=== PATIENT | male | born 1955 | race Caucasian/White ===

== ENCOUNTER 2022-04-11 22:40 | Emergency (ER) | payer OTHER, SELFPAY ==
[2022-04-11 22:40] VITALS: BP 169/108; PULSE 100; RESP 18; O2SAT 91; BMI 26.0
--- NOTE | 2022-04-11 22:43 | XRR_ITS ---
PROCEDURE INFORMATION: Exam: XR Chest Exam date and time: 04/11/2022 11:07 PM Age: 66 years old Clinical indication: Other: No chest complaints; Additional info: SOB TECHNIQUE: Imaging protocol: Radiologic exam of the chest. Views: 1 view. COMPARISON: CT angio headneck* [id number] 04/11/2022 10:57 PM FINDINGS: Lungs: Unremarkable. No consolidation. Pleural spaces: Unremarkable. No pleural effusion. No pneumothorax. Heart/Mediastinum: Unremarkable. No cardiomegaly. Bones/joints: Unremarkable. Other findings: There is soft tissue mass effect seen in the superior mediastinum the right likely corresponding to the large right thyroid mass seen on CTA of the head and neck. Minimal linear opacities are seen in the left mid lower hemithorax likely representing atelectasis. XR/XR chest 1V portable [id number] IMPRESSION: 1. Right superior mediastinal soft tissue attenuation mass likely corresponds to the prominent thyroid mass seen on today's CTA of the head and neck. 2. Linear opacities in the left mid and lower hemithorax likely represents atelectasis.
--- NOTE | 2022-04-11 22:43 | CTR_ITS ---
PROCEDURE INFORMATION: Exam: CT Head Without Contrast Exam date and time: 04/11/2022 10:53 PM Age: 66 years old Clinical indication: Pain; Headache not specified; Patient HX: C/O sudden onset R sided DIAZ TECHNIQUE: Imaging protocol: Computed tomography of the head without contrast. Radiation optimization: All CT scans at this facility use at least one of these dose optimization techniques: automated exposure control; mA and/or kV adjustment per patient size (includes targeted exams where dose is matched to clinical indication); or iterative reconstruction. COMPARISON: No relevant prior studies available. RADIATION DOSE METRICS: Total DLP (mGy-cm): 1071.28 FINDINGS: Brain: There is mild diffuse cerebral atrophy. Patchy areas of hypoattenuation are seen in the deep white the cerebral hemispheres bilaterally compatible with mild deep white matter microvascular disease. Cerebral ventricles: No ventriculomegaly. Paranasal sinuses: Visualized sinuses are unremarkable. No fluid levels. Mastoid air cells: Visualized mastoid air cells are well aerated. Bones/joints: Unremarkable. No acute fracture. Soft tissues: Unremarkable. CT/CT head wo con* [id number] IMPRESSION: There are no acute intracranial findings.
--- NOTE | 2022-04-11 22:43 | CTR_ITS ---
PROCEDURE INFORMATION: Exam: CTA Head With Contrast, Arteries Exam date and time: 04/11/2022 10:57 PM Age: 66 years old Clinical indication: Pain; Headache; Patient HX: C/O sudden onset R sided DIAZ TECHNIQUE: Imaging protocol: Computed tomographic angiography of the head with contrast. 3D rendering (Not supervised by radiologist): MIP and/or 3D reconstructed images were created by the technologist. Radiation optimization: All CT scans at this facility use at least one of these dose optimization techniques: automated exposure control; mA and/or kV adjustment per patient size (includes targeted exams where dose is matched to clinical indication); or iterative reconstruction. Contrast material: OMNI 350; Contrast volume: 95 ml; Contrast route: INTRAVENOUS (IV); COMPARISON: CT head wo con* [id number] 04/11/2022 10:53 PM RADIATION DOSE METRICS: Total DLP (mGy-cm): 472.47 FINDINGS: ANTERIOR CIRCULATION: Right internal carotid artery: Unremarkable. Intracranial segment is patent with no significant stenosis. No aneurysm. Right middle cerebral artery: Unremarkable. No occlusion or significant stenosis. No aneurysm. Right anterior cerebral artery: Unremarkable. No occlusion or significant stenosis. No aneurysm. Left internal carotid artery: Unremarkable. Intracranial segment is patent with no significant stenosis. No aneurysm. Left middle cerebral artery: Unremarkable. No occlusion or significant stenosis. No aneurysm. Left anterior cerebral artery: Unremarkable. No occlusion or significant stenosis. No aneurysm. POSTERIOR CIRCULATION: Right vertebral artery: Unremarkable. No occlusion or significant stenosis. No aneurysm. Left vertebral artery: Unremarkable. No occlusion or significant stenosis. No aneurysm. Basilar artery: Unremarkable. No occlusion or significant stenosis. No aneurysm. Right posterior cerebral artery: Unremarkable. No occlusion or significant stenosis. No aneurysm. Left posterior cerebral artery: Unremarkable. No occlusion or significant stenosis. No aneurysm. Brain: No definite mass, mass effect, or midline shift. Cerebral ventricles: No ventriculomegaly. Bones/joints: Unremarkable. No acute fracture. Soft tissues: Unremarkable. PROCEDURE INFORMATION: Exam: CTA Neck With Contrast Exam date and time: 04/11/2022 10:57 PM Age: 66 years old Clinical indication: Pain; Headache; Patient HX: C/O sudden onset R sided DIAZ TECHNIQUE: Imaging protocol: Computed tomographic angiography of the neck with contrast. 3D rendering (Not supervised by radiologist): MIP and/or 3D reconstructed images were created by the technologist. Radiation optimization: All CT scans at this facility use at least one of these dose optimization techniques: automated exposure control; mA and/or kV adjustment per patient size (includes targeted exams where dose is matched to clinical indication); or iterative reconstruction. Contrast material: OMNI 350; Contrast volume: 95 ml; Contrast route: INTRAVENOUS (IV); COMPARISON: CT head wo con* [id number] 04/11/2022 10:53 PM RADIATION DOSE METRICS: Total DLP (mGy-cm): 472.47 FINDINGS: Right common carotid artery: No stenosis. No dissection or occlusion. Right internal carotid artery: No stenosis of the extracranial segment. No dissection or occlusion. Right external carotid artery: No occlusion or stenosis of the origin. Left common carotid artery: No stenosis. No dissection or occlusion. Left internal carotid artery: No stenosis of the extracranial segment. No dissection or occlusion. Left external carotid artery: No occlusion or stenosis of the origin. Right vertebral artery: Diminutive caliber. No stenosis. No dissection or occlusion. Left vertebral artery: Dominant left vertebral artery No stenosis. No dissection or occlusion. Thyroid: There is a large heterogeneous mass present within the right thyroid lobe, its inferior margin included in the current examination measuring 4.9 cm transverse dimension by 6 cm AP dimension. It measures at least 6.6 cm craniocaudal dimension. A somewhat lobulated inhomogeneous left lobe is seen as well. Soft tissues: Normal. No significant soft tissue swelling. Bones/joints: No acute fracture. CT/CT angio headneck* [id number] IMPRESSION: No large vessel stenosis or occlusion. IMPRESSION: 1. There is no evidence for significant stenoses, dissection occlusion visualized arteries of the neck. 2. Heterogeneous thyroid parenchyma with prominent heterogeneous right mass. Follow-up non-emergent thyroid ultrasound is recommended. COMMENTS: Consistent with the [place] [employer]'s Incidental Findings Committee white paper (J Am Herminio Radiol 2015): In patients aged 35 years and older with an incidental thyroid nodule equal to or greater than 1.[address], MRI or extrathyroidal US, further evaluation with dedicated thyroid US is recommended for patients with normal life expectancy and without comorbidities. For smaller nodules without suspicious features, no further evaluation or follow up is recommended. REFERENCES: NASCET CRITERIA. The degree of internal carotid artery stenosis is based on NASCET criteria. Normal is no stenosis. Mild is less than 50% stenosis. Moderate is 50-69% stenosis. Severe is 70% to 99% stenosis. Total occlusion is no detectable patent lumen.
--- NOTE | 2022-04-11 22:44 | ECG_ITS ---
[facility] Test Date: 2022-04-11 Pat Name: Eduard Lacey Department: Room: Gender: Male Hogs[employer] Cooper: : 1955 Requested By: Charlette Lay Order Number: [id number] Татьяна MD: Vikram Ramirez M.D. Measurements Intervals Springer Rate: 100 P: 46 TN: 160 QRS: -54 QRSD: 130 T: 78 QT: 364 QTc: 471 Interpretive Statements SINUS TACHYCARDIA POSSIBLE LEFT ATRIAL ENLARGEMENT [-0.1mV P-WAVE IN V1/V2] LEFT ANTERIOR FASCICULAR BLOCK [QRS AXIS <= -45, QR IN I, RS IN II] LEFT VENTRICULAR HYPERTROPHY AND ST-T CHANGE [VOLTAGE CRITERIA PLUS ST/T ABNORMALITY] No previous ECG available for comparison Electronically Signed On 04-12-2022 20:45:26 CDT by Vikram Ramirez M.D. [id number] f
[2022-04-11 22:48] VITALS: TEMP 37
--- NOTE | 2022-04-11 22:50 | ED_ITS ---
HPI - Chest Pain General: Chief Complaint: Chest Pain Stated Complaint: CP Time Seen by Provider: 04/11/22 22:43 Source: patient and EMS Mode of arrival: EMS Limitations: no limitations History of Present Illness: 66-year-old male states that roughly 10 PM he started to have a headache. He states it was in the right side of his head while with his right neck. He states pain is currently an 8 out of 10. Denies any fever denies any worsening improving factors. He denies any vomiting or diarrhea. He states that he does have a lesion to his right scalp causing pain at times. Associated symptoms: Deny abdominal pain, dyspnea, fever(s), nausea or vomiting Review of Systems Const: Denies: fever(s), chills, body aches or change in appetite Eyes: Denies: blurry vision or eye discomfort ENMT: Denies: throat pain or dental pain Card: Denies: chest pain Resp: Denies: dyspnea GI: Denies: abdominal pain, nausea, vomiting or diarrhea : Denies: dysuria Musc: Reports: neck pain Skin/Breast: Denies: rash Neuro: Reports: headache(s) Psych: Denies: depression Gopi/Lymph: Denies: easy bruising All/Imm: Denies: urticaria PFSH ED PFSH: Surgical History (Updated 04/11/22 @ 22:54 by Charlette Lay MD) No pertinent past surgical history Social History (Updated 04/11/22 @ 22:52 by Charlette Lay MD) Substance/Drug Use: never Physical Exam Const: COMMON NORMALS: no acute distress, patient oriented x3 and healthy appearing HENMT: COMMON NORMALS: normocephalic and atraumatic HEAD & SCALP: normocephalic and atraumatic Eye: COMMON NORMALS: Equal, round and reactive pupils present and EOMs intact bilaterally PUPIL: Yes Equal, round and reactive pupils present Neck/C-Spine: COMMON NORMALS: full ROM and supple Chest: COMMONS NORMALS: normal inspection of the chest and normal palpation of entire chest wall Resp: COMMON NORMALS: normal respiratory effort, No retractions, No use of accessory muscles and clear to auscultation bilaterally AUSCULTATION: clear to auscultation bilaterally Cardio: COMMON NORMALS: regular rate, regular rhythm and No murmurs present (Cardio) RATE: regular rate RHYTHM: regular rhythm GI: COMMON NORMALS: Normal to inspection, nondistended, normoactive bowel sounds present, Soft to palpation, non-tender and no masses PALPATION: Yes Soft to palpation Extremity: COMMON NORMALS: normal to inspection and full ROM Neuro: COMMON NORMALS: patient oriented x3, moves all extremities and no focal motor deficits Psych: COMMON NORMALS: mental status grossly normal, Normal thought process present and cooperative THOUGHT PROCESS: Normal thought process present Skin: COMMON NORMALS: no rashes or lesions noted and no wounds GENERAL SKIN EXAM: no rashes or lesions noted Course Vital Signs: Vital signs: Vital Signs Temperature 98.6 F 04/11/22 22:48 Pulse Rate 77 04/12/22 01:32 Respiratory Rate 16 04/12/22 01:32 Blood Pressure 122/85 04/12/22 01:32 Pulse Oximetry 92 04/12/22 01:32 MDM - Chest Pain Medical Decision Making Patient presents with a headache that is since resolved his head CT and CT angio here are normal no signs of aneurysm. He does have a thyroid mass we will get him follow-up with oncology he is otherwise well-appearing here he is stable for discharge she is return if worsening. Lab Data : 04/11/22 22:30 04/11/22 22:30 Radiology Impressions Chest X-Ray 04/11/22 22:43 IMPRESSION: 1. Right superior mediastinal soft tissue attenuation mass likely corresponds to the prominent thyroid mass seen on today's CTA of the head and neck. 2. Linear opacities in the left mid and lower hemithorax likely represents atelectasis. Head CT 04/11/22 22:43 IMPRESSION: There are no acute intracranial findings. Head/Neck CTA 04/11/22 22:43 IMPRESSION: No large vessel stenosis or occlusion. IMPRESSION: 1. There is no evidence for significant stenoses, dissection occlusion visualized arteries of the neck. 2. Heterogeneous thyroid parenchyma with prominent heterogeneous right mass. Follow-up non-emergent thyroid ultrasound is recommended. COMMENTS: Consistent with the [place] [employer]'s Incidental Findings Committee white paper (J Am Herminio Radiol 2015): In patients aged 35 years and older with an incidental thyroid nodule equal to or greater than 1.[address], MRI or extrathyroidal US, further evaluation with dedicated thyroid US is recommended for patients with normal life expectancy and without comorbidities. For smaller nodules without suspicious features, no further evaluation or follow up is recommended. REFERENCES: NASCET CRITERIA. The degree of internal carotid artery stenosis is based on NASCET criteria. Normal is no stenosis. Mild is less than 50% stenosis. Moderate is 50-69% stenosis. Severe is 70% to 99% stenosis. Total occlusion is no detectable patent lumen. Laboratory Results WBC 9.5 10^3/uL (4.0-10.0) 04/11/22 22:30 RBC 4.90 10^6/uL (4.1-5.3) 04/11/22: Hgb 15.8 g/dL (11.7-16.6) 04/11/22: Hct 45.1 % (42.0-52.0) 04/11/22: MCV 92.0 fl (80-94) 04/11/22: MCH 32.2 pg (28.0-34.0) 04/11/22: MCHC 35.0 g/dL (30.0-36.0) 04/11/22: RDW 11.4 % (12.1-15.1) L 04/11/22: Plt Count 191 10^3/cmm (130-400) 04/11/22 22: MPV 11.0 fL (7.4-10.4) H 04/11/22 22: Neut % (Auto) 69.3 % 04/11/22: Lymph % (Auto) 21.2 % 04/11/22 22:30 [place] % (Auto) 8.3 % 04/11/22: Eos % (Auto) 0.7 % 04/11/22: Baso % (Auto) 0.2 % 04/11/22:30 Neut # (Auto) 6.60 10^3/uL (1.8-7.7) 04/11/22: Lymph # (Auto) 2.0 10^3/uL (0.8-4.8) 04/11/22: [place] # (Auto) 0.8 10^3/uL (0.2-0.9) 04/11/22 22:30 Eos # (Auto) 0.1 10^3/uL (0.0-0.8) 04/11/22 22:30 Baso # (Auto) 0.0 10^3/uL (0.0-0.1) 04/11/22 22:30 Nucleated RBC % (auto) 0 % 04/11/22 22: Nucleated RBCs # 0.0 /100WBC 04/11/22 22:30 Sodium 140 mmol/L (136-145) 04/11/22 22:30 Potassium 3.7 mmol/L (3.5-5.1) 04/11/22 22:30 Chloride 104 mmol/L (98-107) 04/11/22 22: Carbon Dioxide 24 mmol/L (22-29) 04/11/22: Anion Gap 15.7 (5-19) 04/11/22 22:30 BUN 17 mg/dL (8-23) 04/11/22 22:30 Creatinine 0.9 mg/dL (0.7-1.2) 04/11/22 22:30 GFR Calculation 84.2 mL/min (90-130) L 04/11/22 22:30 Glucose 133 mg/dL (65-115) H 04/11/22 22:30 Calculated Osmolality 293 mOsm/kg (285-295) 04/11/22 22: Calcium 9.3 mg/dL (8.5-10.5) 04/11/22 22:30 Total Bilirubin 0.5 mg/dL (0.15-1.2) 04/11/22 22:30 AST 17 U/L (0-40) 04/11/22 22:30 ALT 18 U/L (0-41) 04/11/22 22:30 Alkaline Phosphatase 72 IU/L (40-130) 04/11/22 22:30 Troponin T Baseline 14 ng/L (0-15) 04/11/22 22:30 Troponin T 120 Minute 13.02 ng/L (0-15) 04/12/22 00:30 Delta Troponin T -0.98 ABS# (0-10) L 04/12/22 00:30 Total Protein 7.3 g/dL (6.6-8.7) 04/11/22 22:30 Albumin 4.3 g/dL (3.5-5.2) 04/11/22 22:30 Globulin 3.0 g/dL (1.3-4.6) 04/11/22 22:30 EKG Data EKG 1: I personally reviewed and interpreted this EKG as follows: EKG interpretation date: 04/11/22 EKG interpretation time: 22:45 Interpretation: sinus tch hr [address] elevation qrs 130 qtc 421 EKG 2: I personally reviewed and interpreted this EKG as follows: EKG interpretation date: 04/12/22 EKG interpretation time: 00:28 Interpretation: nsr hr [address] or t wave abnormalities qrs 132 qtc 440 Discharge Plan Discharge Patient Disposition: Home Clinical Impression: Headache, Thyroid mass Discharge Orders: Discharge ED (Routine); Ordered 04/12/22 Ordered By: Charlette Lay Referrals: Rik Tan MD [Hospitalist] - 1-3 days Discharge Diet: Advance as tolerated Discharge Activity: Resume usual activity Coding Level of Care Code ED Valve Lapper for Chg Fwd Exam Comprehensive
[2022-04-11 22:53] LABS: Basophils % 0.2 %; Eosinophils # 0.1 10^3/uL (0.0-0.8); Eosinophils % 0.7 %; Hematocrit 45.1 % (42.0-52.0); Hemoglobin 15.8 g/dL (11.7-16.6); Lymphocytes % 21.2 %; Mean Corpuscular Hemoglobin 32.2 pg (28.0-34.0); Monocytes # 0.8 10^3/uL (0.2-0.9); Monocytes % 8.3 %; Neutrophils % 69.3 %; Nucleated Red Blood Cells % 0 %; Platelet Count 191 10^3/cmm (130-400); Red Cell Distribution Width 11.4 % (12.1-15.1); White Blood Count 9.5 10^3/uL (4.0-10.0)
[2022-04-11] MEDS: iohexol 350 mg/mL 100 mL Btl IV (23:03)
[2022-04-11 23:13] VITALS: BP 167/97; PULSE 92; RESP 18; O2SAT 90
[2022-04-11 23:17] LABS: Alanine Aminotransferase 18 U/L (0-41); Albumin Level 4.3 g/dL (3.5-5.2); Alkaline Phosphatase 72 IU/L (40-130); Aspartate Amino Transferase 17 U/L (0-40); Blood Urea Nitrogen 17 mg/dL (8-23); Calcium 9.3 mg/dL (8.5-10.5); Carbon Dioxide 24 mmol/L (22-29); Chloride 104 mmol/L (98-107); Glomerular Filtration Rate 84.2 mL/min (90-130); Glucose 133 mg/dL (65-115); Osmolality Calculated 293 mOsm/kg (285-295); Sodium 140 mmol/L (136-145); Total Bilirubin 0.5 mg/dL (0.15-1.2); Total Protein 7.3 g/dL (6.6-8.7)
[2022-04-11 23:18] VITALS: RESP 16
[2022-04-11 23:18] LABS: Anion Gap 15.7 (5-19); Potassium 3.7 mmol/L (3.5-5.1); Troponin(5th) Baseline 14 ng/L (0-15)
[2022-04-11] MEDS: ondansetron 2 mg/ML SDV 2 mL 4 MG IVP (23:18)
[2022-04-11] MEDS: morphine 4 mg/mL SDV 1 mL IVP (23:18)
[2022-04-12 00:32] VITALS: BP 128/89; PULSE 83; RESP 17; O2SAT 91
[2022-04-12 00:57] LABS: Troponin 5 2HR 13.02 ng/L (0-15)
[2022-04-12 01:00] LABS: Troponin 5 2HR Delta -0.98 ABS# (0-10)
[2022-04-12 01:32] VITALS: BP 122/85; PULSE 77; RESP 16; O2SAT 92
--- NOTE | 2022-04-12 04:50 | ECG_ITS ---
[facility] Test Date: 2022-04-12 Pat Name: Eduard Lacey Department: Room: Gender: Male Community Services Manager: : 1955 Requested By: Charlette Lay Order Number: [id number] Татьяна MD: Vikram Ramirez M.D. Measurements Intervals Thompson Rate: 79 P: 45 CT: 155 QRS: -45 QRSD: 132 T: 67 QT: 405 QTc: 466 Interpretive Statements SINUS RHYTHM POSSIBLE LEFT ATRIAL ENLARGEMENT [-0.1mV P-WAVE IN V1/V2] INTRAVENTRICULAR CONDUCTION DELAY [130+ ms QRS DURATION] POSSIBLE LEFT VENTRICULAR HYPERTROPHY [VOLTAGE CRITERIA PLUS LAE OR QRS WIDENING] POSSIBLE SEPTAL MYOCARDIAL INFARCTION , OF INDETERMINATE AGE [30 ms Q WAVE IN V1/V2] Compared to ECG 04/11/2022 22:45:56 Intraventricular conduction delay now present Myocardial infarct finding now present Sinus tachycardia no longer present Left anterior fascicular block no longer present ST (T wave) deviation no longer present Electronically Signed On 04-12-2022 21:01:25 CDT by Vikram Ramirez M.D. [id number]
--- NOTE | 2022-04-12 07:58 | DCPLANNER ---
Addendum entered by Yvonne Owens 04/14/22 15:42: Patient had a follow up appointment scheduled with ENT - patient did attend appointment. Addendum entered by Yvonne Owens 04/12/22 08:03: Patient has [employer] insurance, correctional case manager sent patients information to [place] with [employer] [facility] [employer] [facility], for the authorization process to get started. Original Note: child welfare manager had message to refer patient to Dr. Tan at oncology. child welfare manager called and spoke with Keely, charge coordinator. child welfare manager was told that patient would need to be referred to ENT first. child welfare manager sent patients information to the front office staff at ENT. Patients information will printed and reviewed. Clinic will call patient with appointment information.
== END 2022-04-12 01:33 | disposition home or self-care (01) ==
PROVIDERS: Emergency Provider Emergency Medicine
DX: R51.9 Headache, unspecified (principal); E07.9 Disorder of thyroid, unspecified
CPT/HCPCS: 70450; 70496; 70498; 71045; 80053; 84484; 85025; 93005; 96374; 96375; 99285; J2270; J2405; Q9967

== ENCOUNTER → 2022-04-14 13:39 | Outpatient (BNVA) | payer OTHER, SELFPAY | PROVIDERS: Visit Provider Otolaryngology | DX: D23.4 Other benign neoplasm of skin of scalp and neck (principal); F17.290 Nicotine dependence, other tobacco product, uncomplicated | CPT/HCPCS: 99203 ==

== ENCOUNTER 2022-05-01 16:34 | Inpatient (IN) | payer OTHER, MEDICARE, SELFPAY ==
[2022-05-01 16:42] VITALS: BP 127/87; PULSE 120; RESP 18; TEMP 37.2; O2SAT 94; BMI 26.7
--- NOTE | 2022-05-01 16:54 | W.ED.PSYCHS ---
Documented by User: SEGUN Starkey 05/01/22 18:38 HPI - Psych General: Chief Complaint: Psychiatric Symptoms Stated Complaint: SI Time Seen by Provider: 05/01/22 16:54 History of Present Illness: 66-year-old male patient comes in today with thoughts of suicide. Patient has recently found to have a mass on his thyroid, and his lung, and some prostate issues. Patient is worried he has cancer and does not want to suffer or per his family and friends through watching him . Patient is considering cutting his throat with a knife. Patient has had 1 previous attempt for suicide 10 to 12 years ago in which she had hospitalization. Patient reports marijuana use but has not used in the last 2 to 3 weeks. Patient does smoke tobacco routinely. Patient has drink alcohol but does not do it routinely. Patient has a history of diabetes, hypertension. Patient had his gallbladder removed 2 years ago. Patient has had previous surgeries on his ankles and digits of the hand. Patient did recently moved to [place] from [place] 3 weeks ago to be with his girlfriend. Patient routinely is seen at the [facility] where they are evaluating him for these abnormalities seen on his imaging of his thyroid, lung and urinary issues. No definitive diagnosis of cancer is noted at this time. complaint: suicidal ideation Onset (ago): day(s) History of same: Yes Associated symptoms: Reports suicidal ideation Review of Systems General: Reports: 10 or more systems reviewed and unremarkable except in HPI and below Psych: Reports: anxiety and suicidal ideation [facility] PFSH: Surgical History History of ankle surgery Hx of cholecystectomy No pertinent past surgical history Social History Smoking and tobacco status: current every day smoker (3 cigs a day ) Physical Exam Const: COMMON NORMALS: alert HENMT: COMMON NORMALS: normocephalic HEAD & SCALP: normocephalic Neck/C-Spine: COMMON NORMALS: full ROM Resp: COMMON NORMALS: normal respiratory effort Cardio: COMMON NORMALS: regular rate RATE: regular rate GI: COMMON NORMALS: non-tender Extremity: COMMON NORMALS: normal to inspection Neuro: SENSORIUM/ORIENTATION: Yes alert Psych: COMMON NORMALS: cooperative and speech normal APPEARANCE: Yes disheveled ATTITUDE: Yes Withdrawn affect present SPEECH: Yes normal speech MOOD & AFFECT: Yes depressed mood THOUGHT CONTENT: Yes Depersonalization present ATTENTION/CONCENTRATION: Yes concentration grossly intact INSIGHT: Poor insight present (Psych) JUDGEMENT: Limited judgement present (Psych) Course Vital Signs: Vital signs: Vital Signs Temperature 98.9 F 05/01/22 16:42 Pulse Rate 120 H 05/01/22 16:42 Respiratory Rate 18 05/01/22 16:42 Blood Pressure 127/87 05/01/22 16:42 Pulse Oximetry 94 05/01/22 16:42 Oxygen Delivery Me thod 05/01/22 16:42 MDM - Psych Medical Decision Making Patient comes in today with suicidal thoughts. Patient has a previous attempt about 10 to 12 years ago. Patient's plan is to cut his throat. Patient has recently come under some concerns of health with possibility of cancer and does not want to suffer or put his family through watching him . On exam patient is is unremarkable. Patient responds appropriate to questioning. Patient appears nontoxic. Respirations are even lungs are clear to auscultation. Differential diagnosis includes adjustment disorder, major depressive disorder, suicidal thoughts and ideation. Reviewed exam with Dr. Lay who then talked with Dr. Nix regarding admission to the hospital neuropsychiatric unit. Lab Data : 05/01/22 17:26 05/01/22 17:26 Laboratory Results Urine Opiates Screen Negative ng/mL (Negative) 05/01/22 16:57 Ur Barbiturates Screen Negative ng/mL (Negative) 05/01/22 16:57 Ur Phencyclidine Scrn Negative ng/mL (Negative) 05/01/22 16:57 Ur Amphetamines Screen Negative ng/mL (Negative) 05/01/22 16:57 U Benzodiazepines Scrn Negative ng/mL (Negative) 05/01/22 16:57 Urine Cocaine Screen Negative ng/mL (Negative) 05/01/22 16:57 U Marijuana (THC) Screen Positive ng/mL (Negative) H 05/01/22 16:57 Discharge Plan Discharge Patient Disposition: Admitted As Inpatient Admit Provider: Stu Nix Clinical Impression: Suicidal ideation Condition: Stable Coding Level of Care Code ED Microbiology Laboratory Manager for Chg Fwd Exam Comprehensive Documented by User: Charlette Lay MD 05/01/22 17:24 HPI - Psych General: Chief Complaint: Psychiatric Symptoms Stated Complaint: SI Time Seen by Provider: 05/01/22 16:54 PFSH ED PFSH: Surgical History History of ankle surgery Hx of cholecystectomy No pertinent past surgical history Social History Smoking and tobacco status: current every day smoker (3 cigs a day ) Course Vital Signs: Vital signs: Vital Signs Temperature 98.9 F 05/01/22 16:42 Pulse Rate 120 H 05/01/22 16:42 Respiratory Rate 18 05/01/22 16:42 Blood Pressure 127/87 05/01/22 16:42 Pulse Oximetry 94 05/01/22 16:42 Oxygen Delivery Me thod 05/01/22 16:42 MDM - Psych Medical Decision Making Patient comes in today with suicidal thoughts. Patient has a previous attempt about 10 to 12 years ago. Patient's plan is to cut his throat. Patient has recently come under some concerns of health with possibility of cancer and does not want to suffer or put his family through watching him . On exam patient is is unremarkable. Patient responds appropriate to questioning. Patient appears nontoxic. Respirations are even lungs are clear to auscultation. Differential diagnosis includes adjustment disorder, major depressive disorder, suicidal thoughts and ideation. Reviewed exam with Dr. Lay who then talked with Dr. Nix regarding admission to the hospital neuropsychiatric unit. I evaluated patient with above midlevel agree with his history and physical I spoke to patient as well he is suicidal and is concerned about a recent mass that was on his thyroid. He does have a plan to kill himself by cutting his throat. I did speak to Dr. Nix who is evaluated patient in the ER we will place under 96-hour hold and plan on admitting patient to the psychiatric [facility] here if his lab work is all normal. Lab Data : 05/01/22 17:26 05/01/22 17:26 Laboratory Results Urine Opiates Screen Negative ng/mL (Negative) 05/01/22 16:57 Ur Barbiturates Screen Negative ng/mL (Negative) 05/01/22 16:57 Ur Phencyclidine Scrn Negative ng/mL (Negative) 05/01/22 16:57 Ur Amphetamines Screen Negative ng/mL (Negative) 05/01/22 16:57 U Benzodiazepines Scrn Negative ng/mL (Negative) 05/01/22 16:57 Urine Cocaine Screen Negative ng/mL (Negative) 05/01/22 16:57 U Marijuana (THC) Screen Positive ng/mL (Negative) H 05/01/22 16:57 Discharge Plan Discharge Patient Disposition: Admitted As Inpatient Admit Provider: Stu Nix Clinical Impression: Suicidal ideation Condition: Stable Coding Level of Care Code ED Microbiology Laboratory Manager for [facility]wtom Exam Comprehensive
[2022-05-01 17:32] LABS: Basophils % 0.4 %; Eosinophils # 0.1 10^3/uL (0.0-0.8); Eosinophils % 1.3 %; Hematocrit 47.1 % (42.0-52.0); Hemoglobin 15.8 g/dL (11.7-16.6); Lymphocytes # 1.8 10^3/uL (0.8-4.8); Mean Corpuscular HGB Conc 33.5 g/dL (30.0-36.0); Mean Corpuscular Hemoglobin 32.1 pg (28.0-34.0); Mean Corpuscular Volume 95.7 fl (80-94); Mean Platelet Volume 10.5 fL (7.4-10.4); Monocytes # 0.7 10^3/uL (0.2-0.9); Monocytes % 7.1 %; Neutrophils # 6.62 10^3/uL (1.8-7.7); Neutrophils % 71.9 %; Nucleated Red Blood Cells % 0 %; Platelet Count 206 10^3/cmm (130-400); Red Blood Count 4.92 10^6/uL (4.1-5.3); Red Cell Distribution Width 11.3 % (12.1-15.1); White Blood Count 9.2 10^3/uL (4.0-10.0)
[2022-05-01 17:42] LABS: Amphetamines Screen Urine Negative (Negative); Barbiturates Screen Urine Negative (Negative); Benzodiazepines Screen Urine Negative (Negative); Cocaine Screen Urine Negative (Negative); Opiate Screen Urine Negative (Negative); PCP Screen Urine Negative (Negative); THC Screen Urine Positive (Negative)
[2022-05-01 18:19] LABS: Alanine Aminotransferase 13 U/L (0-41); Albumin Level 4.5 g/dL (3.5-5.2); Alcohol Level 40 mg/dL (0-10); Alkaline Phosphatase 77 IU/L (40-130); Anion Gap 20.7 (5-19); Aspartate Amino Transferase 13 U/L (0-40); Blood Urea Nitrogen 15 mg/dL (8-23); Calcium 9.8 mg/dL (8.5-10.5); Carbon Dioxide 19 mmol/L (22-29); Chloride 105 mmol/L (98-107); Globulin 3.2 g/dL (1.3-4.6); Glomerular Filtration Rate 96.4 mL/min (90-130); Glucose 173 mg/dL (65-115); Osmolality Calculated 297 mOsm/kg (285-295); Potassium 3.7 mmol/L (3.5-5.1); Sodium 141 mmol/L (136-145); Thyroid Stimulating Hormone 0.01 uIU/mL (0.27-4.20); Total Bilirubin 0.3 mg/dL (0.15-1.2); Total Protein 7.7 g/dL (6.6-8.7)
[2022-05-01 18:35] LABS: Acetaminophen < 5.0 ug/mL (10-30); Salicylate < 0.3 mg/dL (3-10)
--- NOTE | 2022-05-01 18:50 | PC.NURSE ---
Report called to NPU, RN
[2022-05-01 18:55] VITALS: BP 112/73; PULSE 103; RESP 16; O2SAT 98
[2022-05-01 19:30] VITALS: BP 122/81; PULSE 84; RESP 16; TEMP 36.3
[2022-05-01 20:19] VITALS: BP 122/81; PULSE 94; RESP 16; TEMP 36.9
[2022-05-01] MEDS: trazodone 50 mg Tablet PO ×2 (20:29→21:58)
[2022-05-01] MEDS: hyDROXYzine 25 mg Capsule 50 MG PO (20:29)
[2022-05-01] MEDS: OLANZapine 5 mg ODT PO (21:58)
[2022-05-01 22:00] VITALS: BP 122/81; PULSE 94; RESP 16; TEMP 36.9
--- NOTE | 2022-05-01 22:06 | PC.ADMIT ---
[facility] Admission Note: The patient,Eduard Lacey,66 y/o, was given written information regarding hospital policies, unit procedures and contact persons. Patient's smoking status: current every day smoker. Vital Signs - 8 hr 05/01/22 16:42 05/01/22 18:55 05/01/22 20:19 Temperature 98.9 F 98.4 F Pulse Rate 120 H 103 H 94 Respiratory Rate 18 16 16 Blood Pressure 127/87 112/73 122/81 Pulse Oximetry 94 98 Oxygen Delivery Method Room Air Room Air Room Air 05/01/22 19:30 05/01/22 21:17 05/01/22 22:00 Temperature 97.3 F L 98.4 F Pulse Rate 84 94 Respiratory Rate 16 16 Blood Pressure 122/81 122/81 Pulse Oximetry Oxygen Delivery Method Room Air Room Air Room Air ADMITTED FROM ER VIA SECURITY AND WHEELCHAIR AT 1910. PT IS ON A 96 HOUR HOLD THAT ENDS ON 05/07/22 AT 0001. PT REPORTS HE HAS HAD INCREASED DEPRESSION, ANXIETY AND SUICIDAL THOUGHTS FOR THE PAST 3 DAYS. PT STATES HE WAS RECENTLY DIAGNOSISED WITH LUNG CANCER AND IT HAS REALLY UPSET HIM AND FEELS LIKE HE WOULD BE BETTER OFF . CURRENTLY DENIES SI/HI AND AVH AT THIS TIME. PT DENIES PAIN. PT STATES HE [facility] [place] AND HAS NOT RECEIVED THE MEDS YET AND DOES NOT REMEMBER WHAT THEY ARE. INFORMED PT WE WOULD CHECK WITH THE [facility] ON TUESDAY AND GET HIS MEDS RESTARTED. PT DOES STATE HE USES ALCHOHOL OCCASSIONALLY, SMOKES WEEK ONCE OR TWICE A MONTH AND SMOKES 3 CIGERRETTES A DAY. EDUCATION WAS PROVIDED. VERBALIZED UNDERSTANDING. HAS NO KNOWN DRUG ALLERGIES. ORIENTATED TO UNIT. ALL QUESTIONS ANSWERED AND SUPPORT WAS VOICED.
--- NOTE | 2022-05-01 23:28 | PC.NURSE ---
PRN MEDICATIONS PT REQUESTED SOMETHING TO HELP SLEEP AND VERBALIZED HE WAS VERY ANXIOUS. PT IS VISIBLY ANXIOUS. TRAZADONE 50 MG WAS GIVEN FOR SLEEP AND VISTARIL 50 MG WAS GIVEN FOR ANXIETY. PT LAID DOWN AND SLEPT BRIEFLY. ABOUT AN HOUR AND A HALF LATER PT STATES HE IS STILL UNABLE TO SLEEP AND IS VERY ANXIOUS. PT WAS GIVEN A 2ND DOSE OF TRAZADONE 50 MG ORDERED AND ZYDIS 5 MG FOR ANXIETY ORDERED. PT HAS BEEN LAYING DOWN AND APPEARS TO BE SLEEPING SINCE.
[2022-05-02 05:56] VITALS: BP 106/64; PULSE 63; RESP 16; TEMP 36.6; O2SAT 95
[2022-05-02 06:00] VITALS: BMI 26.7
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
[2022-05-02] MEDS: escitalopram 10 mg Tablet 5 MG PO (13:12)
--- NOTE | 2022-05-02 13:13 | PC.NURSE ---
NEW MED STARTED. ESCITALOPRAM 5MG DAILY, FIRST DOSE GIVEN 05/02/22 1315, NEW MEDICATION EDUCATION PROVIDED TO PT, VERB UNDERSTANING
[2022-05-02 14:00] VITALS: BP 115/72; PULSE 92; RESP 18; TEMP 36.6; O2SAT 95
[2022-05-02] MEDS: OLANZapine 5 mg ODT PO (15:34)
[2022-05-02 20:16] VITALS: BP 117/66; PULSE 79; RESP 18; TEMP 36.4; O2SAT 93
[2022-05-03 06:00] VITALS: PULSE 73; RESP 18; TEMP 37.1; O2SAT 94
--- NOTE | 2022-05-03 06:58 | P.NPUPN_ITS ---
Subjective NPU Subjective: Needs aPatient presents today reporting that he feels like he is doing better. With the young lady's with whom he lives and that seem to work out some of the stressful issues. He reports that he feels like the medication is helping and he denies any side effects. He is reporting that he is feeling like this is going to work out fine and we discussed the likelihood of discharge in the next 48 hours. Mental Status Exam MSE Comments: This is a well nourished, well developed white male in hospital scrubs with limited grooming and adequate eye contact. No abnormal movements except for mild psychomotor retardation. Cooperative with exam in no acute distress. Speech was normal rate and volume. Mood described as pretty good, affect is brighter. Thought process, organized. Thought content: patient denies suicidal or homicidal ideation, no delusions reported or noted and denies any auditory or visual hallucinations. Attention and concentration are intact and memory appeared reliable but none were formally tested. He is alert and oriented three times. Insight and judgment are fair. Impulse control is fair. Vitals/I&O/Wt Last Vital Signs Temp 98.7 F 05/03/22 06:00 Pulse 73 05/03/22 06:00 Resp 18 05/03/22 06:00 BP 117/66 05/02/22 20:16 Pulse Ox 94 05/03/22 06:00 O2 Del Method 05/03/22 06:00 Weight last 48 hrs Weight 87.09 kg Weight 87.09 kg Data NPU : 05/01/22 17:26 05/01/22 17:26 A&P Assessment and plan (1) Suicidal ideation: Status: Acute (2) Major depressive disorder, recurrent: Status: Acute Plan This is a 66 year old white male with a history of depression secondary to losin g his and recent medical concerns of a mass in his throat and chest who presents reporting he felt like the dobson had been closing in on him and endorsing suicidal ideation yesterday but open to starting medications. 1. Started Lexapro 5 mg po q daily 2. Encourage individual, group and milieu therapy 3. Continue q-15 minute check for safety Involuntary Hold Information 96 Hour Hold: 96 Hour Involuntary Admission: Yes 96 Hour Hold Ending Date: 05/07/22 96 Hour Hold Ending Time: 00:01 Attestations NPU Medical Necessity Statement*: Inpatient hospitalization is medically necessary and the clinically appropriate intervention at this time. We will monitor medication to make changes as indicated. Likely length of stay 1-3 days. Coding Level of Care Code Acute Hydraulic Plumber Helper for [facility] Fwd Diagnoses Suicidal ideation R45.851 Major depressive disorder, recurrent F33.9
[2022-05-03] MEDS: escitalopram 10 mg Tablet 5 MG PO (08:57)
[2022-05-03 14:00] VITALS: BP 136/89; PULSE 88; RESP 16; TEMP 36.8; O2SAT 95
[2022-05-03 19:10] VITALS: BP 136/80; PULSE 84; RESP 16; TEMP 36.9
[2022-05-04 06:00] VITALS: BP 149/93; PULSE 65; RESP 18; TEMP 36.5; O2SAT 96
[2022-05-04] MEDS: escitalopram 10 mg Tablet 5 MG PO (08:47)
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
[2022-05-04 11:46] VITALS: BP 149/93; PULSE 65; RESP 18; TEMP 36.5; O2SAT 96
== END 2022-05-04 12:35 | disposition home or self-care (01) | DRG 882 ==
LOC: ER 18:06 → NP 18:19
PROVIDERS: Admitting Provider Psychiatry & Neurology Psychiatry; Emergency Provider Emergency Medicine; Visit Provider Psychiatry & Neurology Psychiatry
DX: F43.25 Adjustment disorder with mixed disturbance of emotions and conduct (principal); F33.9 Major depressive disorder, recurrent, unspecified; R45.851 Suicidal ideations; R91.8 Other nonspecific abnormal finding of lung field; E07.9 Disorder of thyroid, unspecified; F17.210 Nicotine dependence, cigarettes, uncomplicated; E11.9 Type 2 diabetes mellitus without complications; I10 Essential (primary) hypertension
CPT/HCPCS: 80053; 80306; 80307; 84443; 85025; 97165; 99285

== ENCOUNTER 2022-05-06 13:18 | Outpatient (CLI) | payer OTHER, SELFPAY ==
--- NOTE | 2022-05-06 13:24 | CTR_ITS ---
PROCEDURE INFORMATION: Exam: CT Chest With Contrast; Diagnostic Exam date and time: 05/06/2022 1:41 PM Age: 66 years old Clinical indication: Abnormal findings; Abnormal radiologic exam of lung or chest; Additional info: Abnormal chest xray TECHNIQUE: Imaging protocol: Diagnostic computed tomography of the chest with contrast. Radiation optimization: All CT scans at this facility use at least one of these dose optimization techniques: automated exposure control; mA and/or kV adjustment per patient size (includes targeted exams where dose is matched to clinical indication); or iterative reconstruction. Contrast material: OMNI 350; Contrast volume: 95 ml; Contrast route: INTRAVENOUS (IV); COMPARISON: CR (CHEST, ) 04/11/2022 11:07 PM RADIATION DOSE METRICS: Total DLP (mGy-cm): 720.04 FINDINGS: Thyroid: Multiple nodules in the thyroid gland with the largest measuring 4.8 cm in the right thyroid lobe. Lungs: Unremarkable. No consolidation. No masses. Pleural spaces: Unremarkable. No pneumothorax. No pleural effusion. Heart: Coronary vasculature calcifications. Lymph nodes: Unremarkable. No enlarged lymph nodes. Vasculature: Unremarkable. No aortic aneurysm. Gallbladder and bile ducts: Cholecystectomy clips. Bones/joints: Degenerative changes of the spine. Soft tissues: Unremarkable. CT/CT chest w con* [id number] IMPRESSION: No acute abnormality. Multiple nodules in the thyroid gland with the largest measuring 4.8 cm in the right thyroid lobe. Nonemergent ultrasound can be obtained for further evaluation. COMMENTS: Consistent with the [employer]'s Incidental Findings Committee white paper (J Am Herminio Radiol 2015): In patients aged 35 years and older with an incidental thyroid nodule equal to or greater than 1.[address], MRI or extrathyroidal US, further evaluation with dedicated thyroid US is recommended for patients with normal life expectancy and without comorbidities. For smaller nodules without suspicious features, no further evaluation or follow up is recommended.
[2022-05-06] MEDS: iohexol 350 mg/mL 100 mL Btl IV (13:47)
== END 2022-05-06 13:19 | disposition home or self-care (01) ==
LOC: RAD 13:18
PROVIDERS: Visit Provider Nurse Practitioner
DX: R93.89 Abnormal findings on diagnostic imaging of other specified body structures (principal); E04.2 Nontoxic multinodular goiter
CPT/HCPCS: 71260

== ENCOUNTER 2022-05-12 08:07 | Outpatient (CLI) | payer OTHER, MEDICARE, SELFPAY ==
--- NOTE | 2022-05-12 08:00 | US_ITS ---
WS: [id number] THYROID ULTRASOUND HISTORY: thyroid mass COMPARISON: Chest CT 05/06/2022 Right lobe: 2.8 cm x 3.0 cm x 6.5 cm (w x ap x l). Volume: 29.4 cm3. Enlarged thyroid. There is a mildly hypoechoic mass with a central cystic component centered in the m id to lower RIGHT thyroid. This mass measures at least 3.7 x 1.8 x 4.1 cm. No echogenic foci. Mild in creased vascularity. The entire thyroid mass as seen on the recent CT is not evident as it extends wa y below the substernal notch. Left lobe: 2.0 cm x 2.0 cm x 5.6 cm (w x ap x l). Volume: 11.7 cm3. Enlarged thyroid gland. Multiple nodules are scattered throughout. There are cystic and solid nodules . Nodules are better evaluated on the CT of the thyroid extends below the substernal notch. Isthmus: 0.5 cm. US/US thyroid [id number] IMPRESSION: 1. Enlarged thyroid with bilateral thyroid nodules. Not all of these nodules a re identified as a extends substernal. This is probably a multinodular goiter. 2. Not all of these nodules can be characterized. The largest in the mid to lo wer RIGHT thyroid is partially solid. Ultrasound-guided FNA can be performed of this nodule as it is the most concerning that is visualized by ultrasound. The large cystic component does favor benignity.
== END 2022-05-12 08:08 | disposition home or self-care (01) ==
LOC: RAD 08:08
PROVIDERS: Visit Provider Otolaryngology
DX: E07.9 Disorder of thyroid, unspecified (principal); E04.2 Nontoxic multinodular goiter
CPT/HCPCS: 76536